=== PATIENT | male | born 1970 | race Caucasian/White ===

== ENCOUNTER 2018-12-10 08:09 | Inpatient (IN) | payer BC ==
[~2018-12-10] VITALS: Ht 180.3 cm; Wt 111.1 kg
[2018-12-10] MEDS ORDERED: SYNTHROID125 MCG (08:26)
[2018-12-10] MEDS ORDERED: COZAAR100 MG (08:27)
[2018-12-15] MEDS ORDERED: INTESTINEX680 M1 PO (14:34)
[2018-12-15] MEDS ORDERED: FLAGYL500MG PO (14:35)
[2018-12-15] MEDS ORDERED: CIPRO500 MG PO (14:35)
== END 2018-12-15 16:19 | disposition home or self-care (01) | DRG 392 ==
LOC: ER 08:09 → MEDJ 22:47 → SEC-K 22:47 → MEDJ 12-11 02:34
PROVIDERS: ADMIT Internal Medicine
PROC: BW40ZZZ Ultrasonography of Abdomen (ICD-10-PCS; principal; 2018-12-10)
PROC: BF37ZZZ Magnetic Resonance Imaging (MRI) of Pancreas (ICD-10-PCS; 2018-12-10)
PROC: BW21ZZZ Computerized Tomography (CT Scan) of Abdomen and Pelvis (ICD-10-PCS; 2018-12-10)
DX: K57.32 Diverticulitis of large intestine without perforation or abscess without bleeding (principal); K60.0 Acute anal fissure; E03.8 Other specified hypothyroidism; K76.0 Fatty (change of) liver, not elsewhere classified; R10.31 Right lower quadrant pain; I10 Essential (primary) hypertension

== ENCOUNTER 2019-02-09 07:20 | Day surgery (SDC) | payer BC ==
[~2019-02-09 07:20] MED LIST: CIPRO500 MG PO; COZAAR100 MG; FLAGYL500MG PO; INTESTINEX680 M1 PO; SYNTHROID125 MCG
== END 2019-02-09 10:52 | disposition home health service (06) ==
LOC: AMB-ENDOS 07:20
DX: K57.30 Diverticulosis of large intestine without perforation or abscess without bleeding (principal)